=== PATIENT | female | born 1960 | race Caucasian/White ===

== ENCOUNTER 2018-04-15 04:05 | Observation (INO) | payer OTHER ==
[2018-04-15] MEDS ORDERED: ONDANSETRON 4 MG/2 ML VIAL ONE ×2 (04:39→11:32)
[2018-04-15] MEDS ORDERED: MORPHINE 4 MG/ML SYR ONE (04:39)
[2018-04-15] MEDS ORDERED: NA CHLORIDE 0.9% 1,000 ML ONE (04:39)
[2018-04-15 05:00] LABS: Absolute Lymphocytes (CBC) 1.4 K/uL (0.7-4.9); Absolute Monocytes 0.5 K/uL (0.1-1.3); Absolute Neutrophil 12.8 K/uL (1.8-8.0); Basophils % 0.2 % (0-1.3); Eosinophils % 0.1 % (0-4.4); Hematocrit 41.1 % (36.0-45.0); Lymphocytes % 9.2 % (15.3-44.8); MCH 30.7 pg (27.0-35.0); MCV 89.4 fL (80-100); MPV 8.1 fL (7.6-11.3); Monocytes % 3.4 % (3.3-12.3); RBC Red Blood Cell Count 4.59 M/uL (3.86-4.86)
[2018-04-15 05:17] LABS: Bilirubin Direct 0.2 mg/dL (0-0.2); Bilirubin Total 1.1 mg/dL (0.2-1.0); Potassium 3.9 mmol/L (3.5-5.1); Protein, Total 7.3 g/dL (6.4-8.2)
[2018-04-15 06:26] LABS: Blood Morphology Comment NOT SEEN (NOT SEEN); Platelet Estimate ADEQ
--- NOTE | 2018-04-15 06:39 | ER ---
Nurse's Notes [facility] Name: Melissa Kenney Age: 57 yrs Sex: Female : 1960 Arrival Date: 04/15/2018 Time: 04:08 Bed 6 Private MD: Diagnosis: Abdominal tenderness;Cholecystitis;Cholelithiasis;Elevated white blood cell count Presentation: 04/15 04:14 Presenting complaint: Patient states: RUQ pain that radiates to back since 1800 last aa1 night. Also reports 4 episodes of vomiting. Transition of care: patient was not received from another setting of care. Onset of symptoms was April 14, 2018 at 18:00. Risk Assessment: Do you want to hurt yourself or someone else? Patient reports no desire to harm self or others. Initial Sepsis Screen: Does the patient meet any 2 criteria? No. Patient's initial sepsis screen is negative. Does the patient have a suspected source of infection? Yes: Acute abdominal pain. Care prior to arrival: None. 04:14 Method Of Arrival: Ambulatory aa1 04:14 Acuity: MONTY 3 aa1 Historical: - Allergies: 04:17 PENICILLINS; aa1 04:17 Prilosec; aa1 04:17 Hydrocodone-Acetaminophen; aa1 - Home Meds: 04:17 valsartan oral oral [Active]; Protonix Oral [Active]; aa1 - PMHx: 04:17 GERD; Hypertension; aa1 - PSHx: 04:17 Appendectomy; Hysterectomy; aa1 - Immunization history:: Flu vaccine is not up to date. - Social history:: Smoking status: Patient/guardian denies using tobacco. - Ebola Screening: : No symptoms or risks identified at this time. Screenin:20 Abuse screen: Denies threats or abuse. Denies injuries from another. Nutritional aa1 screening: No deficits noted. Tuberculosis screening: No symptoms or risk factors identified. Fall Risk None identified. Assessment: 04:20 General: Appears in no apparent distress. comfortable, Behavior is calm, cooperative, aa1 appropriate for age. Pain: Complains of pain in right upper quadrant Pain radiates to back. Neuro: Level of Consciousness is awake, alert, obeys commands, Oriented to person, place, time, situation, Moves all extremities. Full function Gait is steady. Cardiovascular: Denies chest pain, palpitations, shortness of breath. Respiratory: Airway is patent Respiratory effort is even, unlabored, Respiratory pattern is regular, symmetrical. GI: Abdomen is non-distended, Bowel sounds present X 4 quads. Abd is soft X 4 quads Reports upper abdominal pain, nausea, vomiting. : No signs and/or symptoms were reported regarding the genitourinary system. EENT: No signs and/or symptoms were reported regarding the EENT system. Derm: Skin is intact, is healthy with good turgor, Skin is pink, warm \T\ dry. Musculoskeletal: Circulation, motion, and sensation intact. Capillary refill < 3 seconds. 06:30 Reassessment: Patient appears in no apparent distress at this time. Patient and/or aa1 family updated on plan of care and expected duration. Pain level reassessed. Patient is alert, oriented x 3, equal unlabored respirations, skin warm/dry/pink. Pt awaiting admission to hospital. 07:00 Reassessment: Patient appears in no apparent distress at this time. Patient and/or jl7 family updated on plan of care and expected duration. Pain level reassessed. Patient is alert, oriented x 3, equal unlabored respirations, skin warm/dry/pink. Patient denies pain at this time. 08:12 Reassessment: Repeat Troponin drawn and sent at this time. jl7 Vital Signs: 04:17 BP 152 / 109; Pulse 82; Resp 18; Temp 98.7; Pulse Ox 100% on R/A; Weight 84.37 kg; aa1 Height 5 ft. 10 in. (177.80 cm); Pain 7/10; 04:40 BP 144 / 88; Pulse 85; Resp 16; Pulse Ox 96% on R/A; aa1 06:23 BP 134 / 92; Pulse 77; Resp 18; Pulse Ox 97% on R/A; aa1 07:00 BP 114 / 72; Pulse 82; Resp 16 S; Pulse Ox 98% on R/A; Pain 0/10; jl7 08:13 BP 113 / 87; Pulse 77; Resp 16 S; Pulse Ox 98% on R/A; jl7 04:17 Body Mass Index 26.69 (84.37 kg, 177.80 cm) aa1 ED Course: 04:08 Patient arrived in ED. es 04:14 Mary Ramachandran, MELODY is Primary Nurse. aa1 04:16 Triage completed. aa1 04:17 Arm band placed on right wrist. aa1 04:20 Patient has correct armband on for positive identification. Bed in low position. Call aa1 light in reach. Pulse ox on. NIBP on. 04:26 Agustin Cheema MD is Attending Physician. tw4 04:33 Initial lab(s) drawn, by me, sent to lab. Inserted saline lock: 20 gauge in right ca1 antecubital area, using aseptic technique. Blood collected. 05:03 Radiology exam delayed due to lab results not completed at this time. (BUN/Creatinine). kw1 05:[address] via wheelchair. kw1 05:35 CT Abd/Pelvis - W/Contrast In Process Unspecified. EDMS 05:35 CT completed. Patient tolerated procedure well. Patient moved back from CT. kw1 06:26 Attending Physician role handed off by Agustin Cheema MD iqra 06:26 Saran Allen MD is Attending Physician. iqra 06:37 Brian Ayoub MD is Hospitalizing Provider. iqra 07:02 X-ray completed. Portable x-ray completed in exam room. Patient tolerated procedure jb2 well. 07:02 Report given to Jenise Winters RN. aa1 08:11 Jenise Winters RN is Primary Nurse. jl7 08:38 Ultrasound completed. Patient tolerated well. aa4 08:47 No provider procedures requiring assistance completed. Patient admitted, IV remains in jl7 place. intact, No redness/swelling at site. Administered Medications: 04:35 Drug: NS 0.9% 1000 ml Route: IV; Rate: 1 bolus; Site: right antecubital; aa1 05:10 Follow up: IV Status: Completed infusion aa1 04:35 Drug: Zofran 4 mg Route: IVP; Site: right antecubital; aa1 05:40 Follow up: Response: No adverse reaction; Nausea is decreased aa1 04:37 Drug: morphine 4 mg Route: IVP; Site: left antecubital; aa1 05:40 Follow up: Response: No adverse reaction; Pain is decreased aa1 06:51 Drug: levofloxacin 750 mg Volume: 150 ml; Route: IVPB; Infused Over: 90 mins; Site: aa1 right antecubital; 08:20 Follow up: Response: No adverse reaction; IV Status: Completed infusion jl7 Outcome: 06:38 Decision to Hospitalize by Provider. iqra 08:47 Admitted to Med/surg accompanied by tech, family with patient, via wheelchair, room jl7 424, with chart, Report called to Floor Nurse 08:47 Condition: stable 08:47 Discharge instructions given to patient, family, Instructed on the need for admit, Demonstrated understanding of instructions. 09:00 Patient left the ED. jl7 Signatures: Dispatcher [employer] EDMary Prajapati, RN RN aa1 Saran Allen MD MD cha Salyer, Stef Meehan jb2 Liudmila Mayorga aa4 Jenise Winters RN RN jl7 Alisha Ruiz1 Agustin Cheema MD MD tw4 Zuri Perry RN RN ca1
--- NOTE | 2018-04-15 06:39 | EDPHYS ---
Physician Documentation [facility] Name: Melissa Kenney Age: 57 yrs Sex: Female : 1960 Arrival Date: 04/15/2018 Time: 04:08 Bed 6 Private MD: ED Physician Saran Allen HPI: 04/15 06:08 This 57 yrs old Female presents to ER via Ambulatory with complaints of tw4 Abdominal Pain. 06:08 This 57 yrs old Female presents to ER via Ambulatory with complaints of tw4 Abdominal Pain. 06:08 The patient presents with abdominal pain in the right upper quadrant. Onset: The tw4 symptoms/episode began/occurred yesterday. The symptoms radiate to right back. Associated signs and symptoms: Pertinent positives: nausea and vomiting. The symptoms are described as sharp. Modifying factors: The symptoms are alleviated by nothing, the symptoms are aggravated by nothing. Severity of pain: At its worst the pain was moderate in the emergency department the pain has resolved. The patient has not experienced similar symptoms in the past. Historical: - Allergies: 04:17 PENICILLINS; aa1 04:17 Prilosec; aa1 04:17 Hydrocodone-Acetaminophen; aa1 - Home Meds: 04:17 valsartan oral oral [Active]; Protonix Oral [Active]; aa1 - PMHx: 04:17 GERD; Hypertension; aa1 - PSHx: 04:17 Appendectomy; Hysterectomy; aa1 - Immunization history:: Flu vaccine is not up to date. - Social history:: Smoking status: Patient/guardian denies using tobacco. - Ebola Screening: : No symptoms or risks identified at this time. ROS: 06:08 Constitutional: Negative for fever, chills, and weight loss, Eyes: Negative for injury, tw4 pain, redness, and discharge, Cardiovascular: Negative for chest pain, palpitations, and edema, Respiratory: Negative for shortness of breath, cough, wheezing, and pleuritic chest pain, Back: Negative for injury and pain, MS/Extremity: Negative for injury and deformity. 06:08 Abdomen/GI: Positive for abdominal pain. Exam: 06:08 Constitutional: This is a well developed, well nourished patient who is awake, alert, tw4 and in no acute distress. Head/Face: Normocephalic, atraumatic. Chest/axilla: Normal chest wall appearance and motion. Nontender with no deformity. No lesions are appreciated. Cardiovascular: Regular rate and rhythm with a normal S1 and S2. No gallops, murmurs, or rubs. Normal PMI, no JVD. No pulse deficits. Respiratory: Lungs have equal breath sounds bilaterally, clear to auscultation and percussion. No rales, rhonchi or wheezes noted. No increased work of breathing, no retractions or nasal flaring. 06:08 MS/ Extremity: Pulses equal, no cyanosis. Neurovascular intact. Full, normal range of motion. Neuro: Awake and alert, GCS 15, oriented to person, place, time, and situation. Cranial nerves II-XII grossly intact. Motor strength 5/5 in all extremities. Sensory grossly intact. Cerebellar exam normal. Normal gait. 06:08 Abdomen/GI: Inspection: abdomen appears normal, Bowel sounds: Palpation: moderate abdominal tenderness. Vital Signs: 04:17 BP 152 / 109; Pulse 82; Resp 18; Temp 98.7; Pulse Ox 100% on R/A; Weight 84.37 kg; aa1 Height 5 ft. 10 in. (177.80 cm); Pain 7/10; 04:40 BP 144 / 88; Pulse 85; Resp 16; Pulse Ox 96% on R/A; aa1 06:23 BP 134 / 92; Pulse 77; Resp 18; Pulse Ox 97% on R/A; aa1 07:00 BP 114 / 72; Pulse 82; Resp 16 S; Pulse Ox 98% on R/A; Pain 0/10; jl7 08:13 BP 113 / 87; Pulse 77; Resp 16 S; Pulse Ox 98% on R/A; jl7 04:17 Body Mass Index 26.69 (84.37 kg, 177.80 cm) aa1 MDM: 04:26 Patient medically screened. tw4 06:08 Differential diagnosis: coronary artery disease, cholecystitis, Cholelithiasis, tw4 gastritis, gastroesophageal reflux disease, pancreatitis, Peptic Ulcer Disease, Perf. Duodenal Ulcer, Perf. Gastric Ulcer. Data reviewed: vital signs, nurses notes. Counseling: I had a detailed discussion with the patient and/or guardian regarding: the historical points, exam findings, and any diagnostic results supporting the discharge/admit diagnosis, lab results, radiology results. 04/15 04:27 Order name: Basic Metabolic Panel; Complete Time: 06:26 tw4 04/15 04:27 Order name: CBC with Diff; Complete Time: 06:33 tw4 04/15 04:27 Order name: Creatinine for Radiology; Complete Time: 06:26 tw4 04/15 04:27 Order name: Hepatic Function; Complete Time: 06:26 tw4 04/15 04:27 Order name: Lipase; Complete Time: 06:26 tw4 04/15 05:03 Order name: Manual Differential; Complete Time: 06:33 [facility] 04/15 06:27 Order name: Magnesium [facility] 04/15 06:27 Order name: NT PRO-BNP [facility] 04/15 06:27 Order name: PT-INR [facility] 04/15 06:27 Order name: Troponin (emerg Dept Use Only) [facility] 04/15 06:45 Order name: Basic Metabolic Panel [facility] 04/15 06:45 Order name: Basic Metabolic Panel [facility] 04/15 06:45 Order name: CBC with Automated Diff [facility] 04/15 06:45 Order name: CBC with Automated Diff [facility] 04/15 04:27 Order name: IV Saline Lock; Complete Time: 04:42 tw4 04/15 04:27 Order name: Labs collected and sent; Complete Time: 04:42 tw4 04/15 04:27 Order name: CT Abd/Pelvis - W/Contrast [facility] 04/15 06:27 Order name: XRAY Chest (1 view) [facility] 04/15 06:27 Order name: EKG; Complete Time: 06:28 [facility] 04/15 06:27 Order name: Cardiac monitoring; Complete Time: 06:51 [facility] 04/15 06:45 Order name: NPO [facility] 04/15 06:45 Order name: Lipase [facility] 04/15 06:45 Order name: Lipase [facility] 04/15 06:45 Order name: Liver (Hepatic) Function [facility] 04/15 06:45 Order name: Liver (Hepatic) Function [facility] 04/15 08:22 Order name: Abdomen Limited US bd 04/15 06:27 Order name: EKG - Nurse/Tech; Complete Time: 06:51 [facility] 04/15 06:27 Order name: O2 Per Protocol; Complete Time: 06:51 [facility] 04/15 06:27 Order name: O2 Sat Monitoring; Complete Time: 06:51 [facility] Administered Medications: 04:35 Drug: NS 0.9% 1000 ml Route: IV; Rate: 1 bolus; Site: right antecubital; aa1 05:10 Follow up: IV Status: Completed infusion aa1 04:35 Drug: Zofran 4 mg Route: IVP; Site: right antecubital; aa1 05:40 Follow up: Response: No adverse reaction; Nausea is decreased aa1 04:37 Drug: morphine 4 mg Route: IVP; Site: left antecubital; aa1 05:40 Follow up: Response: No adverse reaction; Pain is decreased aa1 06:51 Drug: levofloxacin 750 mg Volume: 150 ml; Route: IVPB; Infused Over: 90 mins; Site: aa1 right antecubital; 08:20 Follow up: Response: No adverse reaction; IV Status: Completed infusion jl7 Disposition: 04/15/18 06:38 Hospitalization ordered by Brian Ayoub for Observation. Preliminary diagnosis are Abdominal tenderness, Cholecystitis, Cholelithiasis, Elevated white blood cell count. - Bed requested for Telemetry/MedSurg (observation). - Status is Observation. jl7 - Condition is Stable. - Problem is new. - Symptoms have improved. UTI on Admission? No Signatures: Dispatcher [employer] EDMS Claudette Leach Alissa, RN RN aa1 Saran Allen MD MD cha Leal, Jahala, RN RN jl7 Agustin Cheema MD MD tw4 Corrections: (The following items were deleted from the chart) 08:15 06:38 Hospitalization Ordered by Brian Ayoub MD for Observation. Preliminary diagnosis bd is Abdominal tenderness; Cholecystitis; Cholelithiasis; Elevated white blood cell count. Bed requested for Telemetry/MedSurg (observation). Status is Observation. Condition is Stable. Problem is new. Symptoms have improved. UTI on Admission? No. iqra 09:00 08:15 04/15/2018 06:38 Hospitalization Ordered by Brian Ayoub MD for Observation. jl7 Preliminary diagnosis is Abdominal tenderness; Cholecystitis; Cholelithiasis; Elevated white blood cell count. Bed requested for Telemetry/MedSurg (observation). Status is Observation. Condition is Stable. Problem is new. Symptoms have improved. UTI on Admission? No. bd
[2018-04-15] MEDS ORDERED: ONDANSETRON 4 MG/2 ML VIAL IV PRN ×2 (06:42→12:31)
[2018-04-15] MEDS ORDERED: Levofloxacin 750mg IV 750 MG/150 ML BAG IV ONE (06:42)
[2018-04-15] MEDS ORDERED: ACETAMINOPHEN 500 MG TAB PO PRN (06:42)
[2018-04-15] MEDS ORDERED: MORPHINE 4 MG/ML SYR IV PRN (06:42)
[2018-04-15 06:57] LABS: Protime INR 1.28
--- NOTE | 2018-04-15 07:31 | RAD REPORT ---
EXAM DESCRIPTION: CT - Abdomen Pelvis W Contrast - 04/15/2018 5:35 am CLINICAL HISTORY: Abdominal pain/right lower quadrant pain COMPARISON: none. TECHNIQUE: Computed axial tomography of the abdomen pelvis was obtained. 100 cc Isovue-300 was admin istered intravenously. Oral contrast was not requested which limits evaluation of bowel.Preliminary r eport generated by Leevia and reviewed prior to dictation All CT scans are performed using dose optimization technique as appropriate and may include automated exposure control or mA/KV adjustment according to patient size. FINDINGS: The liver, spleen, pancreas, adrenal and kidneys appear unremarkable. There is no evidence of diverticulitis. The appendix has been removed. The gallbladder is distended. Gallbladder wall is mildly thickened. 15 millimeter stone suspected in the gallbladder neck. IMPRESSION: Cholelithiasis suspected. Mild gallbladder distention. Mild gallbladder wall thickening may indicate cholecystitis. Ultrasound recommended
[2018-04-15 08:37] LABS: Magnesium 2.4 mg/dL (1.8-2.4); NT PRO-BNP 109 pg/mL (<125); Troponin (Emerg Dept Use Only) < 0.02 ng/mL (0.0-0.045)
--- NOTE | 2018-04-15 09:01 | RAD REPORT ---
EXAM DESCRIPTION: Adrien Single View04/15/2018 7:02 am CLINICAL HISTORY: Abdominal pain COMPARISON: none FINDINGS: The lungs appear clear of acute infiltrate. The heart is normal size IMPRESSION: No acute abnormalities displayed
--- NOTE | 2018-04-15 09:03 | RAD REPORT ---
EXAM DESCRIPTION: US - Abdomen Exam Limited - 04/15/2018 8:39 am CLINICAL HISTORY: Abdominal pain. COMPARISON: April 15, 2018 cat scan FINDINGS: 2 centimeter gallstone is present within the neck of the gallbladder. Gallbladder wall is mildly thickened. The biliary tree is normal caliber. IMPRESSION: Cholelithiasis. Thickened gallbladder wall may indicate cholecystitis
[2018-04-15 09:26] VITALS: BMI 26.6
[2018-04-15] MEDS ORDERED: Ringers Lactate 1,000 ML IV ONE (09:57)
[2018-04-15] MEDS ORDERED: CEFOXITIN/SWI 1gm 1 GM/10 ML SYR IV SCH (10:45)
[2018-04-15] MEDS ORDERED: CEFOXITIN SODIUM 1 GM/VIAL IVPB SCH (11:00)
[2018-04-15] MEDS ORDERED: ROCURONIUM 50 MG/5 ML VIAL IV ONE (11:08)
[2018-04-15] MEDS ORDERED: PROPOFOL 200 MG/20 ML VIAL IV ONE (11:08)
[2018-04-15] MEDS ORDERED: LIDOCAINE 1% MPF 5 ML VIAL ONE (11:08)
[2018-04-15] MEDS ORDERED: MIDAZOLAM HCL 2 MG/2 ML INJ ONE (11:08)
[2018-04-15] MEDS ORDERED: FENTANYL CITR 100 MCG/2 ML ONE ×2 (11:08→11:40)
[2018-04-15] MEDS ORDERED: DEXAMETHASONE 10 MG/ML VIAL ONE (11:24)
[2018-04-15] MEDS ORDERED: GLYCOPYRROLATE 0.2 MG/ML SYR ONE (11:31)
[2018-04-15] MEDS ORDERED: KETOROLAC 30 MG/ML INJ ONE (11:31)
[2018-04-15] MEDS ORDERED: NEOSTIGMINE 1 MG/ML -5 ML SYRINGE ONE (11:32)
--- NOTE | 2018-04-15 11:45 | P.OP ---
Laundry Agent: Michaelle RENE Preoperative diagnosis: Acute Cholecystitis and Cholelithiasis Postoperative diagnosis: same Primary procedure: Lap Xiomy Anesthesia: General Estimated blood loss: min Specimen: gb Findings: as above Complications: None Transferred to: Recovery Room Condition: Good
[2018-04-15] MEDS ORDERED: TRAMADOL 37.5mg/APAP 325mg PER TAB PO PRN (11:47)
[2018-04-15] MEDS ORDERED: Mastisol Adhesive Liq ONE (11:52)
[2018-04-15] MEDS ORDERED: PROMETHAZINE 25 MG/ML VIAL ONE (12:19)
[2018-04-15] MEDS ORDERED: MEPERIDINE HCL 25 MG/0.5 ML ONE (12:32)
[2018-04-15] MEDS: NA CHLORIDE 0.9% 1,000 ML IV SCH ×3 (12:59→23:00)
[2018-04-15] MEDS: FAMOTIDINE 20 MG/2 ML VIAL IV SCH ×2 (12:59→21:04)
[2018-04-15] MEDS ORDERED: INFLUENZA VACCINE (for 3y+) 0.5 ML DOSE IMVAC ONE (15:00)
--- NOTE | 2018-04-15 15:32 | EKG ---
Test Date: 2018-04-15 Test Time: 06:45:06 Loan Processing Supervisor: FRANKLIN MEASUREMENT RESULTS: Intervals: Rate: 71 CT: 180 QRSD: 80 QT: 434 QTc: 471 [place]: P: 20 CT: 180 QRS: -21 T: 17 INTERPRETIVE STATEMENTS: Normal sinus rhythm Minimal voltage criteria for LVH, may be normal variant Borderline ECG No previous ECG available for comparison Electronically Signed On 04-15-18 15:31:38 GOLF TECHNICIAN by Carroll Donaldson
[2018-04-15 18:40] LABS: Urine Appearance CLEAR; Urine Bilirubin NEGATIVE (NEG); Urine Blood 1+ (NEG); Urine Color YELLOW; Urine Glucose NEGATIVE (NEG); Urine Protein NEGATIVE (NEG); Urine Urobilinogen 0.2 mg/dL (0.2-1.0); Urine pH 6.5 (5.0-7.0)
[2018-04-15 18:44] LABS: Urine Microscopic Reflex ORDER UMIC
[2018-04-15 19:31] LABS: Urine Bacteria 20-50 /HPF (<20); Urine Culture Reflex Order REFLEXED
--- NOTE | 2018-04-15 21:51 | PREOPHP ---
Date of Admission: 04/15/2018 Chief Complaint: Abdominal pain. History Of Present Illness: The patient is a 57-year-old female, presents with acute onset of epigas tric pain radiating to the right upper quadrant to the back, associated with nausea, vomiting, bloati ng, belching, and heartburn. It is postprandial in nature. She had a similar episode a couple weeks ago. No sore throat, runny nose, cough, headaches, or dizziness. No chest pain. No fever or chill s. No diarrhea or constipation. No blood in her stool. No dysuria or hematuria. Review of Systems: Otherwise unremarkable. Past Medical History: Significant for GERD and hypertension. Past Surgical History: Significant for laparoscopic hysterectomy, open appendectomy, and knee surger y. Allergies: INCLUDE HYDROCODONE, PENICILLIN, AND PRILOSEC. Social History: She denies smoking or drinking. Family History: Noncontributory. Physical Examination: Vital Signs: Stable. She is afebrile. General: She is awake, alert, and oriented x3. Head and Neck: There is no evidence of icterus. Cranial nerves 2 through 12 are grossly within norm al limits. No neck masses. No JVD. Throat clear. Neck is supple. Chest: Clear. Heart: S1, S2. Abdomen: Soft, nondistended. Positive bowel sounds. Positive mild right upper quadrant tenderness. No rebound, rigidity, or guarding. Extremities: Adequately perfused. Nontender. Neuro: Nonfocal. Laboratory Data: White count is 14.7 with a left shift. INR is 1.28. Chemistry reviewed. Total bi lirubin is slightly elevated at 1.1. Remainder of the LFT, amylase, lipase, are within normal limits . CT of the abdomen and pelvis reviewed. Essentially, the patient has a 2-cm gallstone in the neck of the gallbladder and the wall is mildly thickened. Assessment: A 57-year-old female with acute cholecystitis and cholelithiasis. Plan: Admit n.p.o., IV fluid, IV antibiotic, to the OR for lap marjorie, possible open. The patient an d her understand the risks, benefits, and alternatives and agreed to procedure. HEATHER/MELA Voice ID: [id number]
--- NOTE | 2018-04-15 22:14 | OP ---
Date of Procedure: 04/15/2018 Surgeon: Brian Ayoub MD Identification And Records Commander: ANJU Ramirez. Preoperative Diagnosis: Acute cholecystitis and cholelithiasis. Postoperative Diagnosis: Acute cholecystitis and cholelithiasis. Procedure: Laparoscopic cholecystectomy. Estimated Blood Loss: Minimal. Specimen: Gallbladder. Findings: As above. Anesthesia: General. Complications: None. Disposition: The patient tolerated the procedure in stable condition and was taken to Recovery in go od general condition. Procedure In Detail: The patient was brought to the OR and placed in supine position. General anest hesia was given. The patient was prepped and draped in a usual sterile fashion. Marcaine 0.5% was i nfiltrated locally. A 15-blade was used to make a 1 cm infraumbilical midline incision. Subcutaneou s tissue was divided. The fascia was identified and divided and a #1 Vicryl stay suture was placed. Peritoneal cavity was entered with sharp and blunt dissection. A 12-mm trocar was placed into the p eritoneal cavity under direct vision. Pneumoperitoneum was established. Then, three 5-mm trocars pl aced, 1 in the epigastrium just to the right of midline and 2 in the right subcostal region. Laparos copy revealed acute inflammation of the gallbladder with distention. The gallbladder aspirated, wall was thickened, gallbladder fundus retracted superiorly. There were some adhesions on the body and n ear the infundibulum that were taken down with sharp and blunt dissection. Bleeding controlled with cautery. Then the infundibulum was identified and retracted inferolaterally. Then cystic duct and c ystic artery were clearly identified with blunt dissection. Clips placed. Both structures were divi ded. Cautery was used to remove the gallbladder from the liver bed. Bleeding in the liver bed was c ontrolled with cautery. The gallbladder was retrieved through the umbilicus via an EndoCatch bag. R ight upper quadrant was irrigated. Effluent was clear. No evidence of bleeding or bile leakage appr eciated. Subsequently, all trocars were removed under direct vision. Stay sutures were tied to each other across the fascial defect. Subcutaneous wounds were irrigated. Bleeding controlled with caut mirian. A 3-0 chromic used to approximate the subcutaneous tissue and close the skin. Sterile dressing was applied. The patient was awakened and taken to Recovery in good general condition. /MODL Voice ID: [id number] Report ID: [id number]
[2018-04-16] MEDS: NA CHLORIDE 0.9% 1,000 ML IV SCH (05:15)
[2018-04-16 05:30] LABS: Absolute Monocytes 0.7 K/uL (0.1-1.3); Basophils % 0.6 % (0-1.3); Eosinophils % 0.1 % (0-4.4); Hematocrit 37.2 % (36.0-45.0); Lymphocytes % 9.4 % (15.3-44.8); MCH 31.3 pg (27.0-35.0); MCV 91.8 fL (80-100); Monocytes % 6.9 % (3.3-12.3); RBC Red Blood Cell Count 4.06 M/uL (3.86-4.86)
[2018-04-16 05:53] LABS: Albumin 3.2 g/dL (3.4-5.0); Bilirubin Direct 0.3 mg/dL (0-0.2); Bilirubin Total 1.2 mg/dL (0.2-1.0); Protein, Total 6.1 g/dL (6.4-8.2)
[2018-04-16] MEDS ORDERED: Levofloxacin 750mg IV 750 MG/150 ML BAG IV SCH (06:00)
[2018-04-16] MEDS: FAMOTIDINE 20 MG/2 ML VIAL IV SCH (08:43)
[2018-04-16 08:47] VITALS: O2SAT 97
--- NOTE | 2018-04-16 11:22 | DS ---
Date of Discharge: 04/16/2018 Admitting Diagnoses: Acute cholecystitis and cholelithiasis. Discharge Diagnoses: Acute cholecystitis and cholelithiasis. Procedure Performed: Laparoscopic cholecystectomy. Hospital Course: The patient is a 57-year-old female who underwent the aforementioned procedure. Po stoperatively, she is tolerating diet, ambulating, pain controlled on p.o. pain medication. Afebrile . Therefore, the patient will be discharged to home. Disposition: Home. Condition: Stable. Discharge Instructions: Resume home medications and diet. Activity as tolerated. No heavy lifting. Remove outer dressing in a.m. Shower. Keep Steri-Strips on at all times. Follow up in my office 1 week. Ultracet 1 tablet p.o. q.4h p.r.n. pain. /MODL Voice ID: [id number] Report ID: [id number]
[2018-04-16 12:12] VITALS: BP 149/74; TEMP 99
== END 2018-04-16 11:27 | disposition home or self-care (01) ==
LOC: ER 04:05 → ERHOLD 06:41 → 4TH 08:40
PROVIDERS: ADMIT Surgery; ATTEND Surgery
PROC: 0FT44ZZ Resection of Gallbladder, Percutaneous Endoscopic Approach (ICD-10-PCS; principal; 2018-04-15 11:45)
DX: K80.00 Calculus of gallbladder with acute cholecystitis without obstruction (principal); I10 Essential (primary) hypertension; K21.9 Gastro-esophageal reflux disease without esophagitis; Z88.0 Allergy status to penicillin
CPT/HCPCS: 36415; 71045; 74177; 76705; 80048; 80076; 81003; 81015; 83690; 83735; 83880; 84484; 85025; 85610; 87086; 87088; 88304; 93005; 99285; G0378; J1100; J2175; J2250; J2405; J2550; J2704; J2710; J3010; J7030; Q9967